=== PATIENT | male | born 1960 | race Caucasian/White ===

== ENCOUNTER 2017-11-03 15:25 | Emergency (ER) | payer MEDICARE, MEDICAID ==
[2017-11-03] MEDS ORDERED: NORMAL SALINE 1000 ML 1,000 ML IV ONE (17:23)
[2017-11-03] MEDS ORDERED: MECLIZINE HCL 25 MG TABLET PO ONE (17:24)
[2017-11-03] MEDS ORDERED: ACETAMINOPHEN 325 MG TABLET PO ONE (17:27)
--- NOTE | 2017-11-03 17:30 | ER Document Report ---
ED Medical Screen (RME) - General Chief Complaint: Headache Stated Complaint: HEADACHE Time Seen by Provider: 11/03/17 17:21 Mode of Arrival: Wheelchair Information source: Patient Notes: Patient presents complaining of sinus headache that started yesterday that worsened today. 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 Patient denies any nausea or vomiting today but did report vomiting earlier in the week. Patient states he has not had any food intake for the past 7 days. Patient states that his gait has been off but he has had gait instability in the past when he has had sinus infections. Patient is concerned that maybe his gait instability symptoms may also be due to poor intake in addition to recent narcotics detoxing. I have greeted and performed a rapid initial assessment of this patient. A comprehensive ED assessment and evaluation of the patient, analysis of test results and completion of the medical decision making process will be conducted by additional ED providers. TRAVEL OUTSIDE OF THE [place] IN LAST 30 DAYS: No - Related Data Allergies/Adverse Reactions: No Known Allergies Allergy (Unverified 11/03/17 15:26) Past Medical History - Social History Chew tobacco use (# tins/day): No Frequency of alcohol use: None Drug Abuse: None Renal/ Medical History: Denies: Hx Peritoneal Dialysis Physical Exam - Vital signs Vitals: Temp Pulse Resp BP Pulse Ox 97.9 F 75 18 130/87 H 98 11/03/17 15:58 11/03/17 15:58 11/03/17 15:58 11/03/17 15:58 11/03/17 15:58 - Neurological Krystle Coma Scale Eye Opening: Spontaneous [place] Coma Scale Verbal: Oriented Krystle Coma Scale Motor: Obeys Commands [place] Coma Scale Total: 15 Cerebellar coordination: Gait ataxia Course - Re-evaluation Re-evalutation: 11/03/17 17:[address] from triage. - Vital Signs Vital signs: Temp Pulse Resp BP Pulse Ox 97.9 F 75 18 130/87 H 98 11/03/17 15:58 11/03/17 15:58 11/03/17 15:58 11/03/17 15:58 11/03/17 15:58
--- NOTE | 2017-11-03 17:50 | RADIOLOGY REPORT (SQ) ---
EXAM DESCRIPTION: CHEST SINGLE VIEW COMPLETED DATE/TIME: 11/03/2017 5:36 pm REASON FOR STUDY: POE, gait instability COMPARISON: None. EXAM PARAMETERS: NUMBER OF VIEWS: One view. TECHNIQUE: Single frontal radiographic view of the chest acquired. RADIATION DOSE: NA LIMITATIONS: None. FINDINGS: LUNGS AND PLEURA: No opacities, masses or pneumothorax. No pleural effusion. MEDIASTINUM AND HILAR STRUCTURES: No masses. Contour normal. HEART AND VASCULAR STRUCTURES: Heart normal in size. Normal vasculature. BONES: No acute findings. HARDWARE: None in the chest. OTHER: No other significant finding. IMPRESSION: NO ACUTE RADIOGRAPHIC FINDING IN THE CHEST. TECHNICAL DOCUMENTATION: JOB ID: [id number] [employer]- All Rights Reserved Reading location - IP/workstation name: [email or web address]
--- NOTE | 2017-11-03 17:51 | RADIOLOGY REPORT (SQ) ---
EXAM DESCRIPTION: CT HEAD WITHOUT COMPLETED DATE/TIME: 11/03/2017 5:35 pm REASON FOR STUDY: POE, gait instability COMPARISON: None. TECHNIQUE: Axial images acquired through the brain without intravenous contrast. Images reviewed wi th bone, brain and subdural windows. Additional sagittal and coronal reconstructions were generated. Images stored on PACS. All CT scanners at this facility use dose modulation, iterative reconstruction, and/or weight based d osing when appropriate to reduce radiation dose to as low as reasonably achievable (ALARA). [facility]: Dose Right [facility]: CareDose [facility]: Dose Right [facility]: Teradose 4D [facility]: Smart SCOUPY RADIATION DOSE: CT Rad equipment meets quality standard of care and radiation dose reduction techniq ues were employed. CTDIvol: 53.2 mGy. DLP: 1017 mGy-cm. mGy. LIMITATIONS: None. FINDINGS: VENTRICLES: Normal size and contour. CEREBRUM: No masses. No hemorrhage. No midline shift. No evidence for acute infarction. Normal gra y/white matter differentiation. No areas of low density in the white matter. CEREBELLUM: No masses. No hemorrhage. No alteration of density. No evidence for acute infarction. EXTRAAXIAL SPACES: No fluid collections. No masses. ORBITS AND GLOBE: No intra- or extraconal masses. Normal contour of globe without masses. CALVARIUM: No fracture. PARANASAL SINUSES: Extensive mucous membrane thickening in the frontal, ethmoid, and sphenoid sinuses . SOFT TISSUES: No mass or hematoma. OTHER: No other significant finding. IMPRESSION: NORMAL BRAIN CT WITHOUT CONTRAST. EXTENSIVE SINUS DISEASE. EVIDENCE OF ACUTE STROKE: NO. COMMENT: Quality ID # [id number]: Final reports with documentation of one or more dose reduction techniques (e.g., Automated exposure control, adjustment of the mA and/or kV according to patient size, use of iterative reconstruction technique) TECHNICAL DOCUMENTATION: JOB ID: [id number] [employer]- All Rights Reserved Reading location - IP/workstation name: [email or web address]
[2017-11-03] MEDS ORDERED: ACETAMINOPHEN 325 MG TABLET ONE (19:39)
[2017-11-03] MEDS ORDERED: MECLIZINE HCL 25 MG TABLET ONE (19:42)
[2017-11-03 20:08] LABS: INTERNATIONAL RATION (INR) 0.98; PROTHROMBIN TIME 13.5 SEC (11.4-15.4)
[2017-11-03 20:09] LABS: PARTIAL THROMBOPLASTIN TIME 31.4 SEC (23.5-35.8)
[2017-11-03 20:10] LABS: ABSOLUTE BASOPHILS # (AUTO) 0.1 10^3/uL (0.0-0.2); ABSOLUTE EOSINOPHILS # (AUTO) 0.1 10^3/uL (0.0-0.6); ABSOLUTE LYMPHOCYTES (AUTO) 2.7 10^3/uL (0.5-4.7); ABSOLUTE NEUT (AUTO) 8.1 10^3/uL (1.7-8.2); BASOPHILS % (AUTO) 0.6 % (0-2); HEMATOCRIT 48.5 % (37.9-51.0); HEMOGLOBIN 16.2 g/dL (13.5-17.0); LYMPHOCYTES % (AUTO) 22.2 % (13-45); MEAN CORPUSCULAR HEMOGLOBIN 29.8 pg (27.0-33.4); MEAN CORPUSCULAR HGB CONC 33.3 g/dL (32.0-36.0); MEAN CORPUSCULAR VOLUME 89 fl (80-97); MONOCYTES % (AUTO) 8.6 % (3-13); PLATELET COUNT 358 10^3/uL (150-450); RED BLOOD COUNT 5.43 10^6/uL (4.35-5.55); RED CELL DISTRIBUTION WIDTH 14.1 % (11.5-14.0); SEGMENTED NEUTROPHILS % (AUTO) 67.6 % (42-78); TOTAL CELLS COUNTED % (AUTO) 100 %
[2017-11-03 20:34] LABS: ALANINE AMINOTRANSFERASE 12 U/L (21-72); ALBUMIN 4.8 g/dL (3.5-5.0); ALKALINE PHOSPHATASE 80 U/L (38-126); ANION GAP 11 (5-19); ASPARTATE AMINO TRANSFERASE 28 U/L (17-59); BILIRUBIN,DIRECT 0.6 mg/dL (0.0-0.4); BILIRUBIN,TOTAL 1.3 mg/dL (0.2-1.3); BLOOD UREA NITROGEN 18 mg/dL (7-20); CALCIUM 9.8 mg/dL (8.4-10.2); CARBON DIOXIDE 27 mmol/L (22-30); CHLORIDE 99 mmol/L (98-107); CREATINE KINASE 28 U/L (55-170); GLUCOSE 99 mg/dL (75-110); POTASSIUM 4.8 mmol/L (3.6-5.0); SODIUM 137.1 mmol/L (137-145); TOTAL PROTEIN 9.1 g/dL (6.3-8.2)
[2017-11-03 20:47] LABS: CREATINE KINASE MB < 0.22 ng/mL (<4.55); TROPONIN I < 0.012 ng/mL
[2017-11-03] MEDS ORDERED: ONDANSETRON HCL INJ/PF 4 MG/2 ML SDV IV ONE (22:40)
[2017-11-03] MEDS ORDERED: KETOROLAC TROMETHAMINE INJ/PF 30 MG/1 ML SDV IV ONE (22:40)
--- NOTE | 2017-11-03 22:50 | ER Document Report ---
ED Headache - General Chief Complaint: Headache Stated Complaint: HEADACHE Time Seen by Provider: 11/03/17 17:21 Mode of Arrival: Wheelchair Information source: Patient TRAVEL OUTSIDE OF THE [place] IN LAST 30 DAYS: No - HPI Patient complains to provider of: Headache Notes: This is a 57-year-old male with chronic neck and back pain who presents complaining of sinus headache that started yesterday that worsened today. Pain is located deep to the right eye and is throbbing in nature. He states he does have some blurred vision bilaterally but nothing seems significantly changed and there is no vision loss. He has had similar when he has had sinus infections in the past. He has had rhinorrhea as well. Patient states that he also has been detoxing from narcotics and has not used any narcotics for the past 3 days he did not like the way the medications made him feel and would rather deal with the pain. Patient denies any nausea or vomiting today but did report vomiting earlier in the week. He reports he has had poor intake the last few days and not drinking very well. He also states generalized weakness as well. Denies any fever. No nuchal rigidity. No focal weakness numbness or tingling. He believes he is developing some diarrhea. - Related Data Allergies/Adverse Reactions: No Known Allergies Allergy (Unverified 11/03/17 15:26) Past Medical History - General Information source: Patient - Social History Smoking Status: Current Some Day Smoker Chew tobacco use (# tins/day): No Frequency of alcohol use: None Drug Abuse: None Patient has suicidal ideation: No Patient has homicidal ideation: No Renal/ Medical History: Denies: Hx Peritoneal Dialysis Review of Systems - Review of Systems -: Yes All other systems reviewed and negative Physical Exam - Vital signs Vitals: Temp Pulse Resp BP Pulse Ox 97.9 F 75 18 130/87 H 98 11/03/17 15:58 11/03/17 15:58 11/03/17 15:58 11/03/17 15:58 11/03/17 15:58 - Notes Notes: GENERAL: VS as per nursing doc. Well-appearing, well-nourished and in no acute distress. HEAD: Atraumatic, normocephalic. EYES: Pupils equal round and reactive to light, extraocular movements intact, sclera anicteric, no conjunctival injection or discharge. ENT: Nares patent, oropharynx clear without exudates. Moist mucous membranes. There is some right frontal tenderness to palpation. NECK: Normal range of motion, supple, no carotid bruits. LUNGS: Breath sounds clear to auscultation though somewhat coarse and decreased overall. No wheezes rales or rhonchi. HEART: Normal S1S2. Regular rate and rhythm without murmurs. Equal peripheral pulses. ABDOMEN: Soft, non-tender. EXTREMITIES: No significant range of motion limitations. No edema. NEUROLOGICAL: GCS 15, Cranial nerves II-XII intact. Normal visual rowan. Normal speech without aphasia. No pronator drift. 5/5 RUE strength, 5/5 RLE strength, 5/5 LUE strength, 5/5 LLE strength. No cerebellar abnormalities including normal finger-nose testing. Negative Babinski, 2+= DTR refelexes. PSYCH: Normal mood, normal affect. SKIN: Warm, Dry, no cyanosis, Cap refill < 2 sec. Course - Vital Signs Vital signs: Temp Pulse Resp BP Pulse Ox 97.9 F 75 18 130/87 H 98 11/03/17 15:58 11/03/17 15:58 11/03/17 15:58 11/03/17 15:58 11/03/17 15:58 - Laboratory Result Diagrams: 11/03/17 19:34 11/03/17 19:34 Laboratory results interpreted by me: 11/03/17 11/03/17 19:34 19:34 WBC 12.0 H RDW 14.1 H Direct Bilirubin 0.6 H ALT 12 L Creatine Kinase 28 L Total Protein 9.1 H
--- NOTE | 2017-11-03 22:58 | ER Document Report ---
ED Headache - General Chief Complaint: Headache Stated Complaint: HEADACHE Time Seen by Provider: 11/03/17 17:21 Mode of Arrival: Ambulatory Information source: Patient TRAVEL OUTSIDE OF THE [place] IN LAST 30 DAYS: No - HPI Patient complains to provider of: Headache Notes: This is a 57-year-old male complaining of sinus headache that started yesterday that worsened today. It is located behind his right eye throbbing in nature without radiation. He does have a history of chronic head and neck pain and has had similar to this in the past. 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 He does report that he has had poor p.o. intake for the last week particularly last 3 days has not had any vomiting today though. He does feel like he is getting a little bit of diarrhea. Denies any focal weakness numbness tingling or other neurologic change. He does seem to feel he is a little unstable but has had that with sinus issues in the past and also thinks this might be from the poor p.o. intake. Denies any cough or cold symptoms other than the rhinorrhea. There is no associated fever. Denies trauma. Denies anticoagulation as well. - Related Data Allergies/Adverse Reactions: No Known Allergies Allergy (Unverified 11/03/17 15:26) Past Medical History - General Information source: Patient - Social History Smoking Status: Current Some Day Smoker Chew tobacco use (# tins/day): No Frequency of alcohol use: None Drug Abuse: None Family History: Reviewed & Not Pertinent Patient has suicidal ideation: No Patient has homicidal ideation: No Renal/ Medical History: Denies: Hx Peritoneal Dialysis Review of Systems - Review of Systems -: Yes All other systems reviewed and negative Physical Exam - Vital signs Vitals: Temp Pulse Resp BP Pulse Ox 97.9 F 75 18 130/87 H 98 11/03/17 15:58 11/03/17 15:58 11/03/17 15:58 11/03/17 15:58 11/03/17 15:58 Notes: Reviewed - Notes Notes: GENERAL: VS as per nursing doc. Well-appearing, well-nourished and in no acute distress. HEAD: Atraumatic, normocephalic. EYES: Pupils equal round and reactive to light, extraocular movements intact, sclera anicteric, no conjunctival injection or discharge. ENT: Nares patent, oropharynx clear without exudates. Moist mucous membranes. Mild right frontal sinus tenderness to palpation. NECK: Normal range of motion, supple, no carotid bruits. LUNGS: Breath sounds clear to auscultation bilaterally and equal. No wheezes rales or rhonchi. HEART: Normal S1S2. Regular rate and rhythm without murmurs. Equal peripheral pulses. ABDOMEN: Soft, non-tender. EXTREMITIES: No significant range of motion limitations. No edema. NEUROLOGICAL: GCS 15, Cranial nerves II-XII intact. Normal visual rowan. Normal speech without aphasia. No pronator drift. 5/5 RUE strength, 5/5 RLE strength, 5/5 LUE strength, 5/5 LLE strength. No cerebellar abnormalities including normal finger-nose testing. Negative Babinski, 2+= DTR refelexes. PSYCH: Normal mood, normal affect. SKIN: Warm, Dry, no cyanosis, Cap refill < 2 sec. Course - Re-evaluation Re-evalutation: 11/03/17 22:59 CT scan failed to show any significant intracranial pathology. His neurologic exam is intact. He does have frontal sinus tenderness and appears to be developing some narcotic withdrawal symptoms. Discussed with him follow-up. He will be rehydrated given medication here. Feels like his head is improved actually slightly already after receiving some Tylenol here. 11/03/17 23:39 Patient rechecked and has received fluids and medication. He states he is feeling much better and would like to go home. With concern for sinusitis causing significant symptoms I will go on and place him on antibiotics. We will try to treat him symptomatically otherwise. - Vital Signs Vital signs: Temp Pulse Resp BP Pulse Ox 98.3 F 58 L 16 143/83 H 96 11/03/17 23:55 11/03/17 23:55 11/03/17 23:55 11/03/17 23:55 11/03/17 23:55 - Laboratory Result Diagrams: 11/03/17 19:34 11/03/17 19:34 Laboratory results interpreted by me: 11/03/17 11/03/17 19:34 19:34 WBC 12.0 H RDW 14.1 H Direct Bilirubin 0.6 H ALT 12 L Creatine Kinase 28 L Total Protein 9.1 H Discharge - Discharge Clinical Impression: Headache, Drug withdrawal syndrome Condition: Good Disposition: HOME, SELF-CARE Instructions: Antinausea Medication ([facility]), Headache ([facility]) Additional Instructions: Follow-up with your primary care physician. Return for worsening or concern. Prescriptions: Amox Tr/Potassium Clavulanate [Augmentin 875-125 Tablet] 1 tab PO BID 10 Days # 20 tablet Ondansetron [Zofran Odt 4 mg Tablet] 1 - 2 tab PO Q4H PRN #15 tab.rapdis PRN Reason: For Nausea/Vomiting
[2017-11-03 23:56] VITALS: BP 143/83
== END 2017-11-04 | disposition home or self-care (01) ==
LOC: ER 15:25
DX: R51 Headache (principal); F11.23 Opioid dependence with withdrawal
CPT/HCPCS: 99284; 96361; 96374; 96375; 36415; 82553; 82550; 85025; 85610; 85730; 80053; 84484; 71045; 70450; A9270 ×2; J1885; J2405